=== PATIENT | female | born 1970 | race Caucasian/White ===

== ENCOUNTER 2016-12-26 17:06 | Emergency (ER) | payer OTHER ==
[2016-12-26 17:19] VITALS: BP 114/74
[2016-12-26] MEDS ORDERED: Aspirin Low Dose CHEW TAB* 81 MG PO ONE (17:44)
--- NOTE | 2016-12-26 20:54 | UC ---
Jose Pete Erika, scribed for Liat John MD on 12/26/16 at 1716 . Cardiac HPI - HPI Summary HPI Summary: Patient is a 46-year-old female presenting to [facility] with her daughter with a CC of left anterior chest pain starting at 16:00 today. She denies trauma. Patient was folding laundry when the pain began. Patient reports that pain radiated through to the back. Pain was described as sharp and was aggravated by breathing , and worsened gradually. Pain was not alleviated by hot or cold compress. Pain lasted 30 minutes, and has since resolved - she denies left anterior pain currently, but does still note some lower sternal pain rated a 1/10. She denies associated diaphoresis, nausea, and calf pain. Patient denies recent URI or flu- like symptoms. Pt denies Hx GERD, HTN, diabetes, hyperlipidemia. PSHx partial thyroidectomy. FHx HTN, diabetes. Pt's father of a brain aneurysm. Denies FHx CAD, PE, DVT. Patient does not smoke. - History of Current Complaint Stated Complaint: CHEST PAIN Time Seen by Provider: 12/26/16 17:11 Hx Obtained From: Patient, Family/Hand Sander - Daughter Onset/Duration: Gradual Onset, Lasting Minutes - 30 minutes Initial Severity: Moderate Current Severity: None Pain Intensity: 1 Chest Pain Location: Lower Sternal, Left Anterior Character: Sharp/Stabbing Aggravating: Nothing Alleviating: Spontaneous Resolution Associated Signs & Symptoms: Positive: Chest Pain. 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, MALIGNANT Respiratory History Of: Reports: Asthma - WITH BRONCHITIS SOMETIMES, Bronchitis Psychological History Of: Reports: Depression - sometimes Cancer History Of: Denies: Breast Cancer - Surgical History Surgical History: Yes Surgery Procedure, [facility] and [facility] - Family History Known Family History: Positive: Hypertension, Diabetes, Other - brain aneurysm - Social History Lives: With Family Alcohol Use: Occasionally Substance Use Type: None Smoking Status (MU): Never Smoked Tobacco Review of Systems Constitutional: Negative Skin: Negative Eyes: Negative ENT: Negative Respiratory: Negative Cardiovascular: Chest Pain Gastrointestinal: Negative Genitourinary: Negative Motor: Negative Neurovascular: Negative Musculoskeletal: Negative Neurological: Negative Psychological: Negative All Other Systems Reviewed And Are Negative: Yes Physical Exam Triage Information Reviewed: Yes Appearance: Well-Appearing, Well-Nourished, Pain Distress - mild Vital Signs: Initial Vital Signs Temp 98.7 F 12/26/16 17:11 Pulse 72 12/26/16 17:11 Resp 16 12/26/16 17:11 BP 114/74 12/26/16 17:11 Pulse Ox 98 12/26/16 17:11 Vital Signs Reviewed: Yes Eyes: Positive: Conjunctiva Clear ENT: Positive: Normal ENT inspection Neck: Positive: Supple Respiratory: Positive: Lungs clear, Normal breath sounds, No respiratory distress Cardiovascular: Positive: RRR, No Murmur, Pulses Normal, Brisk Capillary Refill Musculoskeletal: Positive: Strength Intact, ROM Intact Neurological: Positive: Alert, Muscle Tone Normal Psychological Exam: Normal Skin Exam: Normal Diagnostics - Laboratory Diagnostic Studies Completed/Ordered: EKG at 17:08. NSR at 67 bpm. Normal AV IV conduction. Low voltage in all leads. Badger is 96. QTC is normal. No acute changes. - Differential Diagnoses - Chest Pain Differential Diagnosis/HQI/PQRI: Acute NC, ACS, Angina, Chest Wall, GI Disease, Lower Respiratory Infection, Pulmonary Embolism - Clinical Impression Provider Diagnoses: acute chest pain - Physician Notifications Discussed Patient Care With: Dr. Marsh ([facility]) at 17:52 - accepts for transfer to the [facility] ED Instructed by Provider To: Will See In ED Discharge - Discharge Plan Condition: Stable Disposition: TRANS HIGHER LVL OF CARE FAC Discharge Disposition Comment: [facility] Referrals: Mohini Guzman MD [Primary Care Provider] - The documentation as recorded by the Jose padilla Erika accurately reflects the service I personally performed and the decisions made by , Liat John MD.
== END 2016-12-26 18:12 | disposition short-term general hospital (02) ==
LOC: UCEAST 17:06
DX: R07.9 Chest pain, unspecified (principal); E07.9 Disorder of thyroid, unspecified; J45.909 Unspecified asthma, uncomplicated; F32.9 Major depressive disorder, single episode, unspecified
CPT/HCPCS: 93005; 99213; A9270-GY; G0463

== ENCOUNTER 2016-12-26 18:18 | Emergency (ER) | payer OTHER ==
[2016-12-26 18:32] VITALS: BP 113/78
[2016-12-26 19:07] LABS: Hematocrit 41 % (35-47); Hemoglobin 14.2 g/dl (12.0-16.0); Mean Corpuscular HGB Conc 34 g/dl (31-36); Mean Corpuscular Hemoglobin 31 pg (27-31); Mean Corpuscular Volume 89 fL (80-97); Mean Platelet Volume 8 um3 (7.4-10.4); Red Blood Count 4.65 10^6/ul (4.0-5.4); Red Cell Distribution Width 13 % (10.5-15); White Blood Count 8.1 10^3/ul (3.5-10.8)
[2016-12-26 19:32] LABS: ALT 9 U/L (7-52); Albumin 4.6 g/dL (3.2-5.2); Alkaline Phosphatase 32 U/L (34-104); BUN/Creatinine Ratio 17.6 (8-20); Blood Urea Nitrogen 12 mg/dL (6-24); C Reactive Protein < 1.00 mg/L (< 5.00); CO2 Carbon Dioxide 25 mmol/L (22-32); Calcium 9.5 mg/dL (8.6-10.3); Chloride 102 mmol/L (101-111); Creatine Kinase 89 U/L (10-223); EGFR African American 120.3 (>60); EGFR Non-African American 93.6 (>60); Globulin 3.4 g/dL (2-4); Glucose 93 mg/dL (70-100); Lipase 25 U/L (11.0-82.0); Sodium 134 mmol/L (133-145)
[2016-12-26 19:50] LABS: TSH (Thyroid Stimulating Horm) 1.94 mcIU/mL (0.34-5.60)
--- NOTE | 2016-12-26 20:13 | RAD ---
INDICATION: Chest pain COMPARISON: None TECHNIQUE: An AP portable view obtained at 1943 hours is submitted. FINDINGS: Bones/Soft Tissues: There are no acute bony findings. Cardiomediastinal: The cardiomediastinal silhouette is normal. Lungs: There are no infiltrates. Pleura: There are no pleural effusions. Other: None IMPRESSION: NO ACTIVE DISEASE.
[2016-12-26 21:48] LABS: Magnesium 1.9 mg/dL (1.9-2.7)
--- NOTE | 2016-12-26 22:17 | ED ---
Aldo Pete Claudia, scribed for Abdifatah Marsh MD on 12/26/16 at 1941 . HPI Chest Pain - HPI Summary HPI Summary: 46 year old female presents to the ED from [facility] with CP. Pt notes sudden onset of mid-sternal CP radiating to her back at 1600 this afternoon. Pt notes pain 8/ 10 during sudden onset at 1600 and now notes the pain is a 1/10. Pt denies any skin diaphoresis, fever, SOB, abd pain, or nausea. Pt notes that while laying down in ED and resting the pain has decreased significantly and therefore has alleviated her Sx. She does note that she had pain with deep breaths during the pain but was not SOB. Pt also denies any leg pain or swelling. She was given aspirin at [facility]. Pt notes that she has never had Sx like this before. No PMHx of Cardiac Disease, GERD, HTN SHx Non smoker - History of Current Complaint Chief Complaint: EDChestPainROMI Time Seen by Provider: 12/26/16 18:42 Hx Obtained From: Patient Onset/Duration: Started Hours Ago Timing: Intermittent Pain Intensity: 0 Pain Scale Used: 0-10 Numeric Chest Pain Location: Mid Sternal Chest Pain Radiates: Yes Chest Pain Radiates To:: Back Character: Other: - unexplainable Aggravating Factor(s): Deep Breaths Alleviating Factor(s): Rest Associated Signs and Symptoms: Positive: Chest Pain. Negative: Diaphoresis, Nausea - Allergy/Home Medications Allergies/Adverse Reactions: Allergies Allergy/AdvReac Type Severity Reaction Status Date / Time SEASONAL ALLERGIES Allergy CONGESTION, Uncoded 10/15/14 06:19 NASAL DRIP PMH/Surg Hx/FS Hx/Imm Hx Previously Healthy: Yes Endocrine/Hematology History: Reports: Hx Thyroid Disease - LEFT THYROID GLAND NEOPLASM,MALIGNANT Denies: Hx Anemia Cardiovascular History: Reports: Other Cardiovascular Problems/Disorders - EXCELARATED HEARTBEAT R/T THYROID DISEASE Respiratory History: Reports: Hx Asthma - WITH BRONCHITIS SOMETIMES GI History: Denies: Hx Jaundice Sensory History: Reports: Hx Contacts or Glasses - GLASSES Denies: Hx Hearing Aid Opthamlomology History: Reports: Hx Contacts or Glasses - GLASSES Psychiatric History: Reports: Hx Depression - sometimes - Cancer History Hx Chemotherapy: No Hx Radiation Therapy: No - Surgical History Surgery Procedure, Year, and Place: 2002 [facility] Hx Anesthesia Reactions: No Infectious Disease History: No Infectious Disease History: Denies: Traveled Outside the [place] in Last 30 Days - Family History Known Family History: Positive: Hypertension, Diabetes - Social History Occupation: Employed Full-time Lives: With Family Alcohol Use: Occasionally Substance Use Type: Reports: None Smoking Status (MU): Never Smoked Tobacco Review of Systems Constitutional: Negative Negative: Skin Diaphoresis Eyes: Negative ENT: Negative Positive: Chest Pain Respiratory: Negative Negative: Abdominal Pain Genitourinary: Negative Positive: Other - no leg pain/swelling Skin: Negative Neurological: Negative Psychological: Normal All Other Systems Reviewed And Are Negative: Yes Physical Exam Triage Information Reviewed: Yes Vital Signs On Initial Exam: Initial Vitals Temp Pulse Resp BP Pulse Ox 99.6 F 69 16 113/78 98 12/26/16 18:30 12/26/16 18:30 12/26/16 18:30 12/26/16 18:30 12/26/16 18:30 Vital Signs Reviewed: Yes Appearance: Positive: Well-Appearing, No Pain Distress Skin: Positive: Warm, Skin Color Reflects Adequate Perfusion, Dry Head/Face: Positive: Normal Head/Face Inspection Eyes: Positive: EOMI, GISELLE ENT: Positive: Normal ENT inspection Neck: Positive: Supple, Nontender Respiratory/Lung Sounds: Positive: Clear to Auscultation, Breath Sounds Present Cardiovascular: Positive: RRR Abdomen Description: Positive: Nontender, Soft Musculoskeletal: Positive: Normal, Strength/ROM Intact Neurological: Positive: Normal, Sensory/Motor Intact, Alert, Oriented to Person Place, Time Psychiatric: Positive: Affect/Mood Appropriate - Lelia Coma Scale Coma Scale Total: 15 Diagnostics - Vital Signs Vital Signs Temp Pulse Resp BP Pulse Ox 12/26/16 19:00 67 16 97 12/26/16 18:59 71 17 97 12/26/16 18:30 99.6 F 69 16 113/78 98 - Laboratory Lab Results: Lab Results 12/26/16 12/26/16 12/26/16 Range/Units 18:35 18:35 18:35 WBC 8.1 (3.5-10.8) 10^3/ul RBC 4.65 (4.0-5.4) 10^6/ul Hgb 14.2 (12.0-16.0) g/dl Hct 41 (35-47) % MCV 89 (80-97) fL MCH 31 (27-31) pg MCHC 34 (31-36) g/dl RDW 13 (10.5-15) % Plt Count 214 (150-450) 10^3/ul MPV 8 (7.4-10.4) um3 Neut % (Auto) 74.0 (38-83) % Lymph % (Auto) 17.6 L (25-47) % [place] % (Auto) 6.3 (1-9) % Eos % (Auto) 1.5 (0-6) % Baso % (Auto) 0.6 (0-2) % Absolute Neuts (auto) 6.0 (1.5-7.7) 10^3/ul Absolute Lymphs (auto) 1.4 (1.0-4.8) 10^3/ul Absolute Monos (auto) 0.5 (0-0.8) 10^3/ul Absolute Eos (auto) 0.1 (0-0.6) 10^3/ul Absolute Basos (auto) 0 (0-0.2) 10^3/ul Absolute Nucleated RBC 0 10^3/ul Nucleated RBC % 0 INR (Anticoag Therapy) 0.96 (0.89-1.11) APTT 31.0 (26.0-36.3) seconds D-Dimer, Quantitative < 200 (Less Than 230) ng/mL Sodium 134 (133-145) mmol/L Potassium Pending Chloride 102 (101-111) mmol/L Carbon Dioxide 25 (22-32) mmol/L Anion Gap Pending BUN 12 (6-24) mg/dL Creatinine 0.68 (0.51-0.95) mg/dL Est GFR ( Amer) 120.3 (>60) Est GFR (Non-Af Amer) 93.6 (>60) BUN/Creatinine Ratio 17.6 (8-20) Glucose 93 (70-100) mg/dL Lactic Acid (0.5-2.0) mmol/L Calcium 9.5 (8.6-10.3) mg/dL Magnesium Pending Total Bilirubin 0.50 (0.2-1.0) mg/dL AST Pending ALT 9 (7-52) U/L Alkaline Phosphatase 32 L (34-104) U/L Total Creatine Kinase 89 (10-223) U/L CK-MB (CK-2) 1.3 (0.6-6.3) ng/mL Troponin I 0.00 (<0.04) ng/mL C-Reactive Protein < 1.00 (< 5.00) mg/L Total Protein 8.0 (6.4-8.9) g/dL Albumin 4.6 (3.2-5.2) g/dL Globulin 3.4 (2-4) g/dL Albumin/Globulin Ratio 1.4 (1-3) Lipase 25 (11.0-82.0) U/L TSH Pending 12/26/16 Range/Units 18:35 WBC (3.5-10.8) 10^3/ul RBC (4.0-5.4) 10^6/ul Hgb (12.0-16.0) g/dl Hct (35-47) % MCV (80-97) fL MCH (27-31) pg MCHC (31-36) g/dl RDW (10.5-15) % Plt Count (150-450) 10^3/ul MPV (7.4-10.4) um3 Neut % (Auto) (38-83) % Lymph % (Auto) (25-47) % [place] % (Auto) (1-9) % Eos % (Auto) (0-6) % Baso % (Auto) (0-2) % Absolute Neuts (auto) (1.5-7.7) 10^3/ul Absolute Lymphs (auto) (1.0-4.8) 10^3/ul Absolute Monos (auto) (0-0.8) 10^3/ul Absolute Eos (auto) (0-0.6) 10^3/ul Absolute Basos (auto) (0-0.2) 10^3/ul Absolute Nucleated RBC 10^3/ul Nucleated RBC % INR (Anticoag Therapy) (0.89-1.11) APTT (26.0-36.3) seconds D-Dimer, Quantitative (Less Than 230) ng/mL Sodium (133-145) mmol/L Potassium Chloride (101-111) mmol/L Carbon Dioxide (22-32) mmol/L Anion Gap BUN (6-24) mg/dL Creatinine (0.51-0.95) mg/dL Est GFR ( Amer) (>60) Est GFR (Non-Af Amer) (>60) BUN/Creatinine Ratio (8-20) Glucose (70-100) mg/dL Lactic Acid 0.9 (0.5-2.0) mmol/L Calcium (8.6-10.3) mg/dL Magnesium Total Bilirubin (0.2-1.0) mg/dL AST ALT (7-52) U/L Alkaline Phosphatase (34-104) U/L Total Creatine Kinase (10-223) U/L CK-MB (CK-2) (0.6-6.3) ng/mL Troponin I (<0.04) ng/mL C-Reactive Protein (< 5.00) mg/L Total Protein (6.4-8.9) g/dL Albumin (3.2-5.2) g/dL Globulin (2-4) g/dL Albumin/Globulin Ratio (1-3) Lipase (11.0-82.0) U/L TSH Result Diagrams: 12/26/16 18:35 12/26/16 20:35 Lab Statement: Any lab studies that have been ordered have been reviewed, and results considered in the medical decision making process. - Radiology CXR Xray Interpretation: No Acute Changes - NO ACTIVE DISEASE Radiology Interpretation Completed By: Radiologist - EKG 20:58 Cardiac Rate: NL EKG Rhythm: Sinus Rhythm - 66 beats/minute Ectopy: None EKG Interpretation: low voltage Chest Pain Course/Dx - Course Assessment/Plan: WELL IN ED. DISCUSSED RESULTS WITH PATIENT/. DISCHARGE HOME STABLE. - Diagnoses Provider Diagnoses: Chest pain Discharge - Discharge Plan Condition: Stable Disposition: HOME Patient Education Materials: Chest Pain (ED) Referrals: Mohini Guzman MD [Primary Care Provider] - Additional Instructions: FOLLOW UP WITH YOUR DOCTOR. RETURN TO THE EMERGENCY DEPARTMENT FOR ANY WORSENING OF YOUR CONDITION; PAIN, SHORTNESS OF BREATH, YOU FEEL ILL OR QUESTIONS OR CONCERNS. The documentation as recorded by the Aldo padilla Claudia accurately reflects the service I personally performed and the decisions made by me, Abdifatah Marsh MD.
== END 2016-12-26 22:22 | disposition home or self-care (01) ==
LOC: ED 18:18
DX: R07.9 Chest pain, unspecified (principal)
CPT/HCPCS: 36415; 71010; 80053; 82550; 82553; 83605; 83690; 83735; 84443; 84484; 85025; 85379; 85610; 85730; 86140; 93005; 99283